=== PATIENT | female | born 1940 | race Caucasian/White ===

== ENCOUNTER 2021-05-05 21:19 | Emergency (ER) | payer MEDICARE, OTHER ==
[~2021-05-05 21:19] MED LIST: KEFLEX500 MG PO
[2021-05-05 22:04] LABS: HEMOGLOBIN 13.5 gm/dl (12.3-15.3); RED BLOOD COUNT 4.55 M/UL (4.00-5.10); WHITE BLOOD COUNT 8.8 K/UL (4.5-11.0)
[2021-05-05 22:36] LABS: BUN/CREATININE RATIO 18 (0-10)
== END 2021-05-06 03:20 | disposition short-term general hospital (02) ==
LOC: ER1 21:19
PROVIDERS: Physician Assistant
DX: S06.6X0A Traumatic subarachnoid hemorrhage without loss of consciousness, initial encounter (principal); S40.011A Contusion of right shoulder, initial encounter; M19.90 Unspecified osteoarthritis, unspecified site; E11.9 Type 2 diabetes mellitus without complications; I10 Essential (primary) hypertension; Z79.01 Long term (current) use of anticoagulants; Z79.899 Other long term (current) drug therapy; Z79.84 Long term (current) use of oral hypoglycemic drugs; W19.XXXA Unspecified fall, initial encounter
CPT/HCPCS: 70450; 72125; 72170; 73020; 73080; 80053; 82550; 82553; 83874; 84484; 85025; 90471; 93005; 99285

== ENCOUNTER 2021-12-19 13:53 | Emergency (ER) | payer MEDICARE, OTHER | END 2021-12-19 18:18 | disposition other institution (70) | LOC: ER1 13:53 | DX: S06.5X9A Traumatic subdural hemorrhage with loss of consciousness of unspecified duration, initial encounter (principal); W19.XXXA Unspecified fall, initial encounter; Y92.009 Unspecified place in unspecified non-institutional (private) residence as the place of occurrence of the external cause | CPT/HCPCS: 70450; 72125; 99284 ==